=== PATIENT | female | born 1985 | race Caucasian/White ===

== ENCOUNTER → 2017-05-04 | Outpatient (CLI) | payer OTHER | LOC: BRMIMAGING 08:39 | PROVIDERS: ATTEND Internal Medicine | DX: R06.02 Shortness of breath (principal); E04.2 Nontoxic multinodular goiter | CPT/HCPCS: 71020-PO ==

== ENCOUNTER → 2017-11-02 | Outpatient (CLI) | payer OTHER | LOC: BRMIMAGING 07:57 | PROVIDERS: ATTEND Internal Medicine Endocrinology, Diabetes & Metabolism | DX: E04.1 Nontoxic single thyroid nodule (principal); E06.3 Autoimmune thyroiditis ==

== ENCOUNTER → 2018-01-11 | Outpatient (CLI) | payer OTHER | LOC: FIMAGING 14:30 | PROVIDERS: ATTEND Internal Medicine Endocrinology, Diabetes & Metabolism | DX: R22.1 Localized swelling, mass and lump, neck (principal) ==

== ENCOUNTER 2018-06-17 17:26 | Outpatient (CLI) | payer OTHER ==
--- NOTE | 2018-06-17 18:01 | GHP ---
DATE OF ADMISSION: 06/17/2018 The patient is a 32-year-old 2, para 1-0-0-1, at 39+ weeks' gestation. She is scheduled for elective induction of labor tomorrow because of a history of HELLP syndrome. She presents today for a Trevino bulb placement. Blood pressures were stable. status is reassuring. An exam was perfo rmed which showed cervix to be 1 cm dilated, 60% effaced, and -2 station. A Trevino bulb was placed wi thout difficulty. heart tracing following the Trevino bulb was reassuring. The patient was disc harged to home. Labor precautions and kick counts were reviewed with the patient. Patient will foll ow up tomorrow morning for induction of labor. /[id number]/MODL
== END 2018-06-17 18:00 | disposition home or self-care (01) ==
LOC: FOBOP 17:26
PROVIDERS: ATTEND Obstetrics & Gynecology
DX: O09.893 Supervision of other high risk pregnancies, third trimester (principal); Z3A.39 39 weeks gestation of pregnancy

== ENCOUNTER 2018-06-18 06:00 | Inpatient (IN) | payer OTHER ==
[2018-06-18] MEDS ORDERED: LR 500 ML IV PRN (06:41)
[2018-06-18] MEDS ORDERED: OXYTOCIN/RINGERS LACTATE 500 ML IV SCH (06:41)
[2018-06-18] MEDS ORDERED: OLIVE OIL 118 ML BTL MISC PRN (07:02)
[2018-06-18] MEDS ORDERED: TERBUTALINE SULFATE 1 MG/ML VIAL IV PRN (07:02)
[2018-06-18] MEDS ORDERED: MISOPROSTOL 200 MCG TAB PR PRN (07:02)
[2018-06-18] MEDS ORDERED: OXYTOCIN/RINGERS LACTATE 1,000 ML IV PRN (07:02)
[2018-06-18] MEDS ORDERED: LR 1,000 ML IV PRN (07:02)
[2018-06-18] MEDS ORDERED: EPSOM SALT 454 GM TP PRN (07:02)
[2018-06-18] MEDS ORDERED: LIDOCAINE 1% 300 MG/30 ML SDV SC PRN (07:02)
[2018-06-18] MEDS ORDERED: IBUPROFEN 600 MG TAB PO PRN (07:02)
[2018-06-18 07:23] LABS: PLATELET COUNT 220 10^3/uL (150-400)
--- NOTE | 2018-06-18 10:54 | GHP ---
DATE OF ADMISSION: 06/18/2018 ADMITTING DIAGNOSIS: Intrauterine at 39-0/7 weeks' gestation for an elective induction of labor. HISTORY OF PRESENT ILLNESS: The patient is a 32-year-old 2, para 1-0-0-1, with a last menstr ual period of 09/13/2017, and an EDC of 06/25/2018, confirmed by an 8-week ultrasound. She has had g ood care at [facility] since registration at 8 weeks' gestation and has had a rela tively uncomplicated course. Her risk factors include a history of HELLP syndrome with G1. She was diagnosed at 40 weeks and 6 days. She had an induction of labor. She received mag nesium and had a spontaneous vaginal delivery. Patient wanted to avoid preeclampsia and the chance o f repeat induction and illness as before, which is why she wanted elective an induction at 39 weeks. She also has hypothyroidism, Betsy's. She is on levothyroxine 100 mcg daily; she has been watch ed closely. Patient's cervical exam was 1 cm, 50%, -2 and soft. She had a Trevino catheter placed for cervical ripening overnight and went home. She had cramping and discomfort overnight. Her Trevino fe ll out on its own this morning. She is now on Pitocin, beginning to feel contractions. She has good movement, no leakage of fluid, no vaginal bleeding and a negative Review of Systems. PAST OBSTETRICAL HISTORY: In May 2016, she had a viable female, 7 pounds 7-1/2 ounces at 40 wee ks and 5 days, induction of labor secondary to preeclampsia. She had HELLP syndrome and had magnesiu m, and this is her 2nd . PAST GYNECOLOGICAL HISTORY: Menarche at age 14. She has normal menstrual triad. Last menstrual per iod of 09/13/2017, and an ultrasound confirmed her dates at 8 weeks. No history of abnormal Paps. S he does have a small fibroid in her uterus. No other gynecological issues. PAST MEDICAL HISTORY: Her only past medical history is Betsy's thyroiditis and she is followed b y Endocrinology and is managed with levothyroxine. PAST SURGICAL HISTORY: She had a hernia repair as a 2-year-old. She did have a history of kidney st ones at 28. No other surgeries or hospitalizations. ALLERGIES: Amoxicillin; it causes a rash her. MEDICATIONS: Include levothyroxine 100 mcg daily, vitamins, , iron with vitamin C. SOCIAL HISTORY: She is . She lives with her and her daughter. She works in [employer]. She denies tobacco, alcohol and drug use. FAMILY HISTORY: Father had a myocardial infarction at age 51. He has hypercholesterolemia. Her mot her also has thyroid disease. Her maternal grandfather had liver cancer. LABS: In this , she is A positive, antibody negative, RPR nonreactive, rubella immune, hepa titis negative, HIV negative, Verifi normal, gonorrhea and chlamydia normal. AFP was normal, 1-hour was 97 and GBS was negative. OBJECTIVE: VITAL SIGNS: Today, she is afebrile. Vital signs are stable. heart tones are 130 s, reactive, moderate variability, category 1. She is now surinder every 3 minutes. CERVIX: 4 c m, 80%, -2, cephalic with a bulgy bag. ASSESSMENT AND PLAN: 32-year-old 2, para 1-0-0-1, at 39-0/7 weeks' gestation for an elective induction of labor secondary to history of preeclampsia and hemolysis, elevated liver enzymes and lo w platelet count (HELLP) syndrome at 40 weeks. Patient is on Pitocin per protocol. When she is in a good labor pattern and ready, she wishes to have her epidural and then I will perform artificial rup ture of membranes. /[id number]/MODL
[2018-06-18] MEDS ORDERED: BUPIVACAINE 0.25% 10 ML SDV ONE (11:20)
[2018-06-18] MEDS ORDERED: PHENYLEPHRINE HCL 100 MCG/ML SYR ONE (11:20)
[2018-06-18] MEDS ORDERED: fentaNYL 2MCG/ML/BUP 0.1% RTU 100 ML BAG EP ONE (11:20)
[2018-06-18] MEDS ORDERED: ONDANSETRON 4 MG/2 ML VIAL IVP PRN (11:51)
[2018-06-18] MEDS ORDERED: PHENYLEPHRINE HCL 100 MCG/ML SYR IVP PRN (11:51)
[2018-06-18] MEDS ORDERED: NALOXONE HCL 0.4 MG/ML INJ IVP PRN (11:51)
--- NOTE | 2018-06-18 11:53 | PREANESOB ---
Obstetric Pre-Anesthesia Info - General Info Proposed Procedure: CYNDI : 2 Para: 1 VLAD: 06/25/18 Gestational Age: 39 week(s) and 0 day(s) - Labor Status Indications for Labor Analgesia: Pain Control Labor Epidural: Proposed Anesthesia Allergies/Adverse Reactions: Allergy/AdvReac Type Severity Reaction Status Date / Time amoxicillin Allergy Verified 02/20/15 20:52 Home Medications: Medication Instructions Recorded 1 tab PO DAILY 02/15/16 Blood Builder Vit w/ Iron 2 tab PO DAILY 06/18/18 Synthroid 100 mcg (*) 1 tab PO DAILY 06/18/18 Visit Medications: Generic Name Dose Route Start Last Admin Trade Name Freq PRN Reason Stop Dose Admin Lactated Ringer's 500 mls @ 500 mls/hr 06/18/18 06:41 Lr IV 06/18/18 17:38 PRN PRN Maternal Hypotension Oxytocin/Lactated Ringer's 500 mls @ 0 mls/hr 06/18/18 06:41 Pitocin 30 Units/Lr (Premix) IV 12/15/18 06:40 CONT AMY Protocol Per Protocol Lactated Ringer's 1,000 mls @ 0 mls/hr 06/18/18 07:02 Lr IV 06/19/18 07:01 PRN PRN SEE PROTOCOL CONDITIONS Protocol Per Protocol Oxytocin/Lactated Ringer's 1,000 mls @ 125 mls/hr 06/18/18 07:02 Pitocin 20 Units/Lr (Premix) IV PRN PRN Post bleeding Ibuprofen 600 mg 06/18/18 07:02 Motrin PO ONCE PRN post , pain Lidocaine HCl 300 mg 06/18/18 07:02 Lidocaine Hcl 1% SC 12/15/18 07:01 ONCE PRN episiotomy Magnesium Sulfate 454 gm 06/18/18 07:02 Epsom Salt TP 12/15/18 07:01 Q1H PRN perineal discomfort Misoprostol 800 - 1,000 mcg 06/18/18 07:02 Cytotec MT ONCE PRN Vaginal Atony/Bleeding [place] Oil 118 ml 06/18/18 07:02 Sweet Oil MISC 12/15/18 07:01 ONCE PRN perineal massage Terbutaline Sulfate 0.25 mg 06/18/18 07:02 Brethine IV 12/15/18 07:01 ONCE PRN Tachysystole Discontinued Medications Generic Name Dose Route Start Last Admin Trade Name Christiano PRN Reason Stop Dose Admin Bupivacaine HCl Confirm 06/18/18 11:20 Sensorcaine 0.25% Sdv Administered 06/18/18 11:21 Dose 10 ml .ROUTE .STK-MED ONE Fentanyl/Bupivacaine HCl Confirm 06/18/18 11:20 Fentanyl/Bupivacaine/Ns 2 Mcg/Ml 0.1% (Premix Administered 06/18/18 11:21 Dose 100 ml EP .STK-MED ONE Phenylephrine HCl Confirm 06/18/18 11:20 Neosynephrine Administered 06/18/18 11:21 Dose 1,000 mcg .ROUTE .STK-MED ONE - Anesthesia History Response to Local Anesthetics: Normal Anesthesia & Operative History: No Prior Problems Family Anesthesia History: Not Applicable - Social History Substance Use/Abuse: Denies - Vital Signs Height/Weight (Nursing): Height 165.1 cm Weight 77.111 kg - Focused Exam Neck exam: FROM Mallampati Score: Class 2 Mouth exam: normal dental/mouth exam Pulmonary: no respiratory distress Cardiovascular: regular rate and rhythym Labs: 06/18/18 06:55 Patient ABO/Rh A POSITIVE 06/18/18 06:55 - Plan Anesthetic Plan: CYNDI Consent Signed and on Chart: Yes Patient/Guardian Understands and Agrees to Plan: Yes Urgent/Emergent Case: Rd mckinley completed preop but documented later for safe timely pt care
--- NOTE | 2018-06-18 11:59 | OBPROG ---
Labor Progress Note Assessment/Plan: Assessment: 32 y/o @ 39 weeks for elective IOL Plan: AROM now and doing well. Comfortable with epidural. Continue IOL and pitocin per protocol 06/18/18 11:58 Subjective/Intrapartum Course: 06/18/18 11:57 Pt is comfortable with her epidural. She was feeling some intense contractions. Objective: 06/18/18 06:55 Patient ABO/Rh A POSITIVE 06/18/18 06:55 - SVE Dilation (cm): 5 Effacement (%): 75 Station: -2 Membranes: AROM Amniotic Fluid Color: Clear - Contraction Pattern Assessment Current Contraction Pattern: Regular (Q 2-3) - FHR Assessment Jacobo FHR (bpm): 140 FHR Pattern Variability: Moderate FHR Category: 1 - Procedures Non-surgical Procedures: Amniotomy - AP Antepartum Course: 06/18/18 11:58 H/o severe pre-eclampsia and HELLP syndrome with G1 @ 41 weeks Oxytocin Orders Assessment - Pre-Induction/Augmentation Assessment Gestational Age: 39 week(s) and 0 day(s) ICD10 Worksheet Patient Problems: Problems Problem Status Onset HELLP syndrome Acute
[2018-06-18] MEDS ORDERED: LR 500 ML IV SCH (12:00)
[2018-06-18] MEDS ORDERED: fentaNYL 2MCG/ML/BUP 0.1% RTU 100 ML EP SCH (12:00)
[2018-06-18] MEDS ORDERED: AMMONIA AROMATIC 1 EACH AMP IH ONE (13:28)
[2018-06-18] MEDS ORDERED: OLIVE OIL 118 ML BTL ONE (13:28)
[2018-06-18] MEDS ORDERED: LIDOCAINE 1% 300 MG/30 ML SDV ONE (13:28)
[2018-06-18] MEDS ORDERED: MISOPROSTOL 200 MCG TAB ONE (13:29)
[2018-06-18] MEDS ORDERED: HYDROCORTISONE 0.5% CREAM TP PRN (14:05)
[2018-06-18] MEDS ORDERED: oxyCODONE IR 5 MG TAB PO PRN (14:05)
[2018-06-18] MEDS ORDERED: DOCUSATE SODIUM 100 MG CAP PO PRN (14:05)
[2018-06-18] MEDS ORDERED: SIMETHICONE 80 MG TAB CHEW PO PRN (14:05)
--- NOTE | 2018-06-18 14:09 | OBDEL ---
Info Type: Vaginal Presentation at Delivery: Vertex L&D Analgesia/Anesthesia Type: Epidural GBS+: No - Hospital Course Intrapartum: 06/18/18 11:57 Pt is comfortable with her epidural. She was feeling some intense contractions. Indications for Delivery: Elective Vaginal Delivery - Delivery Provider Delivery Physician/CNM: Florencia Mathews - Labor and Delivery Onset of Contractions Date: 06/18/18 Onset of Contractions Time: 11:54 Onset of Contractions Type: Induced Rupture of Membranes Date: 06/18/18 Rupture of Membranes Time: 11:54 Rupture of Membranes Type: Artificial Amniotic Fluid Color: Clear Dilation Complete Date: 06/18/18 Dilation Complete Time: 13:21 Placenta Delivery Date: 06/18/18 Placenta Delivery Time: 13:48 Total Hours of Labor: 1 Non-surgical Procedures: Amniotomy Laceration: 2nd Degree Repair: 2-0, Vicryl Vaginal Sponge Count Correct: Yes Vaginal Needle Count Correct: Yes Vaginal Sweep Performed: Yes EBL: 200 Delivery Events: None - Medications Labor Augmentation/Induction Methods Used: Pitocin, Trevino Bulb Labor Augmentation/Induction Indication: Elective Data VLAD: 06/25/18 Gestational Age: 39 week(s) and 0 day(s) Jacobo Delivery Date: 06/18/18 Delivery Time: 13:43 Sex of Infant: Male Score (1 Min): 8 Score (5 Min): 9 ICD10 Worksheet Patient Problems: Problems Problem Status Onset (spontaneous vaginal delivery) Acute HELLP syndrome Acute - ICD10 Problem Qualifiers (1) (spontaneous vaginal delivery)
[2018-06-18] MEDS: ACETAMINOPHEN 325 MG TAB PO SCH ×2 (18:11→20:39)
[2018-06-18] MEDS: IBUPROFEN 600 MG TAB PO SCH (20:36)
[2018-06-19] MEDS: ACETAMINOPHEN 325 MG TAB PO SCH ×3 (02:41→15:30)
[2018-06-19] MEDS: IBUPROFEN 600 MG TAB PO SCH ×3 (02:41→15:31)
[2018-06-19 08:39] VITALS: BP 130/87
--- NOTE | 2018-06-19 09:17 | POSTANESTH ---
Post Anesthetic Evaluation Cardiovascular Status: Normal, Stable Respiratory Status: Normal, Stable Level of Consciousness/Mental Status: Can Participate in Eval Pain Control: Adequate, Prn Tx Ordered Nausea/Vomiting Control: Adequate, Prn Tx Ordered Complications Possibly Related to Anesthesia: None Noted Notes: happy with epidural. denies adverse effects. sensorimotor function intact. able to ambulate, tolerate PO.
--- NOTE | 2018-06-19 14:09 | OBPP ---
Progress Note Assessment/Plan: Assessment: PPD 1 s/p anemia Plan: D/C home per pt request, iron 06/19/18 14:04 Subjective/ Course: 06/19/18 14:05 Pt doing well. Bld has decreased. Mod cramps. BF well. urinating fine. Perineum sore. Wants to be d/c home. Disc checking BP with peds on 06/19/18 14:09 Objective: 06/18/18 06:55 Patient ABO/Rh A POSITIVE 06/18/18 06:55 Temp Pulse Resp BP Pulse Ox 37.0 C 85 17 130/87 H 97 06/19/18 08:00 06/19/18 08:00 06/19/18 08:00 06/19/18 08:00 06/19/18 08:00 Uterine Position/Fundal Height: Umbilicus -2 Uterine Tone: Firm Physical Exam - Physical Exam Abdomen: non-tender, soft, other (FF at umb -2) Extremities: non-tender, pedal edema (minimal) Skin: normal color, warm/dry Neuro/Psych: alert, normal mood/affect
--- NOTE | 2018-06-19 14:11 | OBGCSDC ---
General Delivery Information - General Info : 2 Para: 2 Abortions: 0 Type: Vaginal L&D Analgesia/Anesthesia Type: Epidural Admission Date: 06/18/18 Labs: Patient ABO/Rh A POSITIVE 06/18/18 06:55 Hct 34.8 % (38.0-47.0) L 06/18/18 06:55 - Hospital Course Antepartum: 06/18/18 11:58 H/o severe pre-eclampsia and HELLP syndrome with G1 @ 41 weeks Intrapartum: 06/18/18 11:57 Pt is comfortable with her epidural. She was feeling some intense contractions. : 06/19/18 14:05 Pt doing well. Bld has decreased. Mod cramps. BF well. urinating fine. Perineum sore. Wants to be d/c home. Disc checking BP with peds on 06/19/18 14:09 Vaginal - Delivery Provider Delivery Physician/CNM: Florencia Mathews - Diagnosis Labor: Induced Rupture of Membranes Type: Artificial Amniotic Fluid Color: Clear Laceration: 2nd Degree Repair: 2-0, Vicryl Delivery Events: None - Procedures Non-surgical Procedures: Amniotomy - Delivery Non-surgical Procedures: Amniotomy EBL: 200 [place] Data VLAD: 06/25/18 Gestational Age: 39 week(s) and 1 day(s) Jacobo Delivery Date: 06/18/18 Delivery Time: 13:43 Sex of : Male [place] Weight (gm): 3198 g Score (1 Min): 8 Score (5 Min): 9 Discharge Information - Discharge Information Condition: Good Instruction/Follow Up: See Instruction Sheet, Two Weeks (2-3 with therapist), Six Weeks
== END 2018-06-19 15:32 | disposition home or self-care (01) | DRG 807 ==
LOC: FLD 06:30 → FOB 17:15
PROVIDERS: ADMIT Obstetrics & Gynecology; ATTEND Obstetrics & Gynecology
DX: O70.1 Second degree perineal laceration during delivery (principal); Z37.0 Single live birth; Z3A.39 39 weeks gestation of pregnancy; Z87.59 Personal history of other complications of pregnancy, childbirth and the puerperium
CPT/HCPCS: J2370; J2590